=== PATIENT | male | born 1975 | race Hispanic/Latino ===

== ENCOUNTER 2021-02-03 13:44 | Emergency (ER) | payer BC ==
[2021-02-03] MEDS ORDERED: Ibuprofen 200 MG TAB ONE (14:32)
[2021-02-03] MEDS ORDERED: Acetaminophen 500 MG TAB ONE (14:32)
[2021-02-03] MEDS ORDERED: Dexamethasone 10 MG/ML VIAL ONE (14:35)
[2021-02-03 14:58] LABS: #Monocytes 0.8 10x3/uL (0.0-1.1); #Neutrophils 6.6 10x3/uL (1.5-8.4); %Basophils 0.2 % (0.0-2.0); %Eosinophils 0.1 % (0.0-6.0); %Lymphocytes 14.8 % (18.0-47.0); %Monocytes 8.6 % (0.0-10.0); Hemoglobin 15.6 g/dL (13.5-17.5); Mean Corpuscular Hemoglobin 29.4 pg (27.0-33.0); Mean Corpuscular Volume 86.4 fl (81.2-95.1); Platelet Count 163 10x3/uL (150-450); RBC Distribution Width 13.2 % (11.5-14.5); Red Blood Cell (RBC) Count 5.31 10x6/uL (4.32-5.72); White Blood Cell (WBC) Count 8.7 10x3/uL (3.5-10.5)
[2021-02-03 15:07] LABS: ALT (SGPT) 37 U/L (8-55); AST (SGOT) 34 U/L (5-34); Albumin 3.9 g/dL (3.5-5.0); Alkaline Phosphatase 60 U/L (40-110); Anion Gap 12 mmol/L (10-20); BUN (Urea Nitrogen) 7 mg/dL (8.9-20.6); Bilirubin, Total 0.6 mg/dL (0.2-1.2); Calc. Creatinine Clearance 0 mL/min (70-130); Calcium 8.4 mg/dL (7.8-10.44); Carbon Dioxide 27 mmol/L (22-29); Chloride 100 mmol/L (98-107); Globulin 3.7 g/dL (2.4-3.5); Glucose 107 mg/dL (70-105); Protein, Total 7.6 g/dL (6.0-8.3); Sodium 135 mmol/L (136-145)
[2021-02-03] MEDS ORDERED: Benzonatate 100 MG CAP ONE ×2 (15:29→15:30)
[2021-02-03] MEDS ORDERED: Acetaminophen/Codeine 30-300mg Tablet ONE (15:29)
== END 2021-02-03 17:25 | disposition home or self-care (01) ==
LOC: CSHERS 13:44
DX: U07.1 COVID-19 (principal); J12.82 Pneumonia due to coronavirus disease 2019; E11.9 Type 2 diabetes mellitus without complications
CPT/HCPCS: 71045; 80053; 83605; 84484; 85025; 93005; J1100

== ENCOUNTER 2021-02-06 14:35 | Inpatient (IN) | payer BC ==
[2021-02-06 15:17] LABS: #Basophils 0.1 10x3/uL (0.0-0.2); #Monocytes 1.3 10x3/uL (0.0-1.1); %Basophils 0.4 % (0.0-2.0); %Eosinophils 0.3 % (0.0-6.0); %Monocytes 8.9 % (0.0-10.0); %Neutrophils 70.5 % (40.0-75.0); Hemoglobin 14.4 g/dL (13.5-17.5); Mean Corpuscular HGB CONC 33.7 g/dL (32.0-36.0); Mean Corpuscular Hemoglobin 29.3 pg (27.0-33.0); Mean Platelet Volume 11.6 fl (7.4-10.4); Platelet Count 263 10x3/uL (150-450); RBC Distribution Width 13.5 % (11.5-14.5); Red Blood Cell (RBC) Count 4.91 10x6/uL (4.32-5.72); White Blood Cell (WBC) Count 14.2 10x3/uL (3.5-10.5)
[2021-02-06 15:31] LABS: ALT (SGPT) 37 U/L (8-55); AST (SGOT) 28 U/L (5-34); Albumin 3.7 g/dL (3.5-5.0); Alkaline Phosphatase 66 U/L (40-110); Anion Gap 12 mmol/L (10-20); BUN (Urea Nitrogen) 9 mg/dL (8.9-20.6); Bilirubin, Total 0.6 mg/dL (0.2-1.2); Calc. Creatinine Clearance 0 mL/min (70-130); Carbon Dioxide 24 mmol/L (22-29); Chloride 103 mmol/L (98-107); Globulin 3.5 g/dL (2.4-3.5); Glucose 122 mg/dL (70-105); Potassium 3.4 mmol/L (3.5-5.1); Protein, Total 7.2 g/dL (6.0-8.3); Sodium 136 mmol/L (136-145)
[2021-02-06] MEDS ORDERED: Acetaminophen 500 MG TAB ONE (15:43)
[2021-02-06] MEDS ORDERED: Dexamethasone 4 MG TAB ONE (15:43)
[2021-02-06] MEDS ORDERED: hydrALAZINE 20 MG/ML VIAL SLOW IVP PRN (17:38)
[2021-02-06] MEDS ORDERED: Acetaminophen 325 MG TAB PO PRN (17:38)
[2021-02-06] MEDS ORDERED: Sodium Chloride 0.65% Nasal 44 ML BOT EA NARE PRN (17:38)
[2021-02-06] MEDS ORDERED: Calcium Carbonate 500 MG ChewTAB PO PRN (17:38)
[2021-02-06] MEDS ORDERED: Senokot S 8.6-50 MG TAB PO PRN ×2 (17:38)
[2021-02-06] MEDS ORDERED: Loratadine 10 MG TAB PO PRN (17:38)
[2021-02-06] MEDS ORDERED: Bisacodyl 5 MG TAB PO PRN (17:38)
[2021-02-06] MEDS ORDERED: Ondansetron PF 4 MG/2 ML Vial IVP PRN (17:38)
[2021-02-06] MEDS ORDERED: GUAIFENESIN SF SOLN 200 MG/10 ML UDCUP PO PRN (17:38)
[2021-02-06] MEDS ORDERED: HYDROcodone/Acetaminophen 5/325 mg Tablet PO PRN (17:38)
[2021-02-06] MEDS ORDERED: Ondansetron ODT 4 MG TAB PO PRN (17:38)
[2021-02-06] MEDS ORDERED: Zolpidem Tartrate 5 MG TAB PO PRN (17:38)
[2021-02-06] MEDS ORDERED: Bisacodyl 10 MG SUPP PR PRN (17:38)
[2021-02-06] MEDS ORDERED: Loperamide HCl 2 MG CAP PO PRN ×2 (17:38)
[2021-02-06] MEDS ORDERED: Cepastat Lozenges 1 LOZ PO PRN (17:38)
[2021-02-06] MEDS ORDERED: Ventolin HFA Inhaler 60 PUFF INHALER INH PRN (17:45)
[2021-02-06 18:06] LABS: Troponin I Less than 0.010 ng/mL (< 0.028)
[2021-02-06 18:32] LABS: Lactic Acid 1.3 mmol/L (0.5-2.2)
[2021-02-06 18:56] VITALS: BMI 39.1
[2021-02-06] MEDS ORDERED: Potassium Chloride 20 MEQ TAB PO SCH (20:00)
[2021-02-06 20:57] LABS: Troponin I Less than 0.010 ng/mL (< 0.028)
[2021-02-06] MEDS: cefTRIAXone\\ROCEPHIN 1 GM in Sodium Chloride 0.9% 100 ML IVPB SCH (21:08)
[2021-02-06] MEDS: Famotidine 20 MG TAB PO SCH (21:09)
[2021-02-06] MEDS: Azithromycin 500 MG in Sodium Chloride 0.9% 250 ML 250 ML IVPB SCH (21:09)
[2021-02-06] MEDS: Benzonatate 100 MG CAP PO PRN (21:10)
[2021-02-06 22:27] LABS: Bilirubin Neg (Negative); Blood, Urine Negative (Negative); Clarity Clear (Clear); Glucose, Urine (Dipstick) Normal (Negative); Ketone, Urine Negative (Negative); Leukocyte Negative (Negative); Nitrite Negative (Negative); Protein, Urine (Dipstick) Negative (Neg-Trace)
[2021-02-06 22:36] LABS: Bacteria/HPF 1+ HPF (None Seen); RBC/HPF 0-3 HPF (0-3); Squamous Epithelial 0-3 HPF (0-3); WBC/HPF 0-3 HPF (0-3)
[2021-02-07 00:14] LABS: Troponin I Less than 0.010 ng/mL (< 0.028)
[2021-02-07] MEDS: Benzonatate 100 MG CAP PO PRN ×2 (04:53→19:39)
[2021-02-07 07:30] LABS: #Monocytes 0.4 10x3/uL (0.0-1.1); #Neutrophils 8.1 10x3/uL (1.5-8.4); %Basophils 0.4 % (0.0-2.0); %Lymphocytes 12.7 % (18.0-47.0); %Monocytes 3.7 % (0.0-10.0); %Neutrophils 81.4 % (40.0-75.0); Hemoglobin 14.4 g/dL (13.5-17.5); Mean Corpuscular HGB CONC 33.3 g/dL (32.0-36.0); Mean Corpuscular Hemoglobin 29.3 pg (27.0-33.0); Mean Corpuscular Volume 88.2 fl (81.2-95.1); Mean Platelet Volume 11.5 fl (7.4-10.4); Platelet Count 256 10x3/uL (150-450); RBC Distribution Width 13.2 % (11.5-14.5); Red Blood Cell (RBC) Count 4.91 10x6/uL (4.32-5.72)
[2021-02-07 07:46] LABS: ALT (SGPT) 43 U/L (8-55); AST (SGOT) 25 U/L (5-34); Albumin 3.4 g/dL (3.5-5.0); Alkaline Phosphatase 62 U/L (40-110); Anion Gap 12 mmol/L (10-20); BUN (Urea Nitrogen) 12 mg/dL (8.9-20.6); Bilirubin, Total 0.6 mg/dL (0.2-1.2); CRP (Inflammatory) 15.62 mg/dL (= or < 0.5); Calc. Creatinine Clearance 178 mL/min (70-130); Calcium 8.1 mg/dL (7.8-10.44); Carbon Dioxide 25 mmol/L (22-29); Chloride 109 mmol/L (98-107); Globulin 3.7 g/dL (2.4-3.5); Glucose 144 mg/dL (70-105); Potassium 4.5 mmol/L (3.5-5.1); Protein, Total 7.1 g/dL (6.0-8.3); Sodium 141 mmol/L (136-145)
[2021-02-07] MEDS: Cholecalciferol 1,000 UNITS (25 MCG) TAB PO SCH (08:40)
[2021-02-07] MEDS: Dexamethasone 4 MG TAB PO SCH (08:40)
[2021-02-07] MEDS: Enoxaparin Sodium 40 MG/0.4 ML SYRINGE SC SCH (08:40)
[2021-02-07] MEDS: Ascorbic Acid 500 mg Chewable Tablet PO SCH (08:40)
[2021-02-07] MEDS: Zinc Sulfate 220 MG CAP PO SCH (08:42)
[2021-02-07] MEDS: Famotidine 20 MG TAB PO SCH ×2 (08:42→19:39)
[2021-02-07 11:31] LABS: Hemoglobin A1c 5.7 % (4.0-6.0)
[2021-02-07] MEDS: cefTRIAXone\\ROCEPHIN 1 GM in Sodium Chloride 0.9% 100 ML IVPB SCH (19:38)
[2021-02-07] MEDS: Guaifenesin DM 100-10/5 ML UDCUP PO PRN (19:40)
[2021-02-07] MEDS: Azithromycin 500 MG in Sodium Chloride 0.9% 250 ML 250 ML IVPB SCH (20:38)
[2021-02-07 22:33] LABS: SARS-CoV-2 PCR by NAA DETECTED (NotDetected)
[2021-02-07] MEDS: Zolpidem Tartrate 5 MG TAB PO PRN (23:55)
[2021-02-08] MEDS: Guaifenesin DM 100-10/5 ML UDCUP PO PRN ×2 (05:25→20:21)
[2021-02-08] MEDS: Benzonatate 100 MG CAP PO PRN (05:25)
[2021-02-08 08:22] LABS: ALT (SGPT) 37 U/L (8-55); AST (SGOT) 16 U/L (5-34); Albumin 3.3 g/dL (3.5-5.0); Alkaline Phosphatase 61 U/L (40-110); Anion Gap 12 mmol/L (10-20); BUN (Urea Nitrogen) 13 mg/dL (8.9-20.6); Bilirubin, Total 0.4 mg/dL (0.2-1.2); CRP (Inflammatory) 6.05 mg/dL (= or < 0.5); Calc. Creatinine Clearance 174 mL/min (70-130); Calcium 8.2 mg/dL (7.8-10.44); Carbon Dioxide 21 mmol/L (22-29); Chloride 111 mmol/L (98-107); Globulin 3.7 g/dL (2.4-3.5); Glucose 116 mg/dL (70-105); Sodium 140 mmol/L (136-145)
[2021-02-08] MEDS: Ascorbic Acid 500 mg Chewable Tablet PO SCH (08:38)
[2021-02-08] MEDS: Dexamethasone 4 MG TAB PO SCH (08:38)
[2021-02-08] MEDS: Cholecalciferol 1,000 UNITS (25 MCG) TAB PO SCH (08:39)
[2021-02-08] MEDS: Zinc Sulfate 220 MG CAP PO SCH (08:39)
[2021-02-08] MEDS: Famotidine 20 MG TAB PO SCH ×2 (08:39→20:20)
[2021-02-08] MEDS: Enoxaparin Sodium 40 MG/0.4 ML SYRINGE SC SCH (08:39)
[2021-02-08] MEDS: cefTRIAXone\\ROCEPHIN 1 GM in Sodium Chloride 0.9% 100 ML IVPB SCH (20:19)
[2021-02-08] MEDS: Azithromycin 500 MG in Sodium Chloride 0.9% 250 ML 250 ML IVPB SCH (20:20)
[2021-02-08] MEDS: Zolpidem Tartrate 5 MG TAB PO PRN (23:08)
[2021-02-09] MEDS: Benzonatate 100 MG CAP PO PRN (05:21)
[2021-02-09 07:26] LABS: ALT (SGPT) 40 U/L (8-55); AST (SGOT) 18 U/L (5-34); Albumin 3.4 g/dL (3.5-5.0); Alkaline Phosphatase 61 U/L (40-110); Anion Gap 14 mmol/L (10-20); BUN (Urea Nitrogen) 14 mg/dL (8.9-20.6); Bilirubin, Total 0.4 mg/dL (0.2-1.2); CRP (Inflammatory) 2.47 mg/dL (= or < 0.5); Calc. Creatinine Clearance 174 mL/min (70-130); Calcium 8.4 mg/dL (7.8-10.44); Carbon Dioxide 20 mmol/L (22-29); Chloride 111 mmol/L (98-107); Globulin 3.6 g/dL (2.4-3.5); Glucose 91 mg/dL (70-105); Potassium 4.1 mmol/L (3.5-5.1); Sodium 141 mmol/L (136-145)
[2021-02-09] MEDS: Ascorbic Acid 500 mg Chewable Tablet PO SCH (09:37)
[2021-02-09] MEDS: Enoxaparin Sodium 40 MG/0.4 ML SYRINGE SC SCH (09:37)
[2021-02-09] MEDS: Zinc Sulfate 220 MG CAP PO SCH (09:37)
[2021-02-09] MEDS: Cholecalciferol 1,000 UNITS (25 MCG) TAB PO SCH (09:37)
[2021-02-09] MEDS: Dexamethasone 4 MG TAB PO SCH (09:37)
[2021-02-09] MEDS: Famotidine 20 MG TAB PO SCH (09:37)
[2021-02-09 11:41] VITALS: BP 102/72; TEMP 98.7
== END 2021-02-09 11:55 | disposition home or self-care (01) | DRG 871 ==
LOC: CSHERS 14:35 → CSHTELE 18:42
PROVIDERS: ADMIT Internal Medicine; ATTEND Family Medicine
PROC: 8E0ZXY6 Isolation (ICD-10-PCS; principal; 2021-02-06)
DX: A41.89 Other specified sepsis (principal); U07.1 COVID-19; J12.82 Pneumonia due to coronavirus disease 2019; J96.01 Acute respiratory failure with hypoxia; E87.2 Acidosis; E87.6 Hypokalemia; E66.9 Obesity, unspecified; Z68.39 Body mass index [BMI] 39.0-39.9, adult
CPT/HCPCS: 36415; 36416; 71045; 80053; 82728; 83036; 83605; 84484; 85025; 85379; 86140; 87040; 87635; 93005; 94760; 96374; J0456; J0696; J1100; J1650; J3490; J7050; J8540; U0003; U0005

== ENCOUNTER 2024-04-27 09:43 | Emergency (ER) | payer OTHER ==
[2024-04-27] MEDS ORDERED: Ketorolac Tromethamine 30 MG (1 mL) VIAL ONE (10:15)
== END 2024-04-27 10:25 | disposition home or self-care (01) ==
LOC: CSHERS 09:43
DX: S39.012A Strain of muscle, fascia and tendon of lower back, initial encounter (principal); X58.XXXA Exposure to other specified factors, initial encounter
CPT/HCPCS: 96372; 99283; J1885

== ENCOUNTER 2025-08-08 09:08 | Outpatient (CLI) | payer OTHER | END 2025-08-08 09:09 | disposition home or self-care (01) | LOC: CSHSLEEP 09:08 | PROVIDERS: ATTEND Specialist | DX: G47.33 Obstructive sleep apnea (adult) (pediatric) (principal); R53.83 Other fatigue; R09.89 Other specified symptoms and signs involving the circulatory and respiratory systems; E66.9 Obesity, unspecified; Z68.37 Body mass index [BMI] 37.0-37.9, adult; R06.83 Snoring; G47.61 Periodic limb movement disorder | CPT/HCPCS: 95811 ==